=== PATIENT | male | born 1935 | race Two or more races ===

== ENCOUNTER 2017-12-12 09:33 | Inpatient (IN) | payer OTHER ==
[~2017-12-12] VITALS: Ht 165.1 cm; Wt 64.9 kg
[~2017-12-12 09:33] MED LIST: ADVAIR 2501 DISK W/1 IH; ASA81 MG; DOXAZOSIN MESYLA2 MG; IPRATROPIUM0.2 MG/ML; SIMVASTATIN20 MG; SYMBICORT 16010.2 GM; TUDORZA PRESS400 MCG; VASOTEC20 M1
[2017-12-20] MEDS ORDERED: MEDROLPACK PO (13:59)
[2017-12-20] MEDS ORDERED: BEVESPI AEROS10.7 GM IH (13:59)
== END 2017-12-20 14:06 | disposition home or self-care (01) | DRG 190 ==
LOC: ER 09:33 → MEDJ 15:22 → SEC-K 15:22 → MEDJ 17:49
PROC: 3E0F7GC Introduction of Other Therapeutic Substance into Respiratory Tract, Via Natural or Artificial Opening (ICD-10-PCS; principal; 2017-12-12)
DX: J44.1 Chronic obstructive pulmonary disease with (acute) exacerbation (principal); J96.21 Acute and chronic respiratory failure with hypoxia; E87.2 Acidosis; J84.112 Idiopathic pulmonary fibrosis; I27.29 Other secondary pulmonary hypertension; I73.9 Peripheral vascular disease, unspecified; I10 Essential (primary) hypertension; E11.9 Type 2 diabetes mellitus without complications; E78.5 Hyperlipidemia, unspecified; R13.19 Other dysphagia; Z99.81 Dependence on supplemental oxygen

== ENCOUNTER 2018-08-24 09:11 | Inpatient (IN) | payer OTHER ==
[~2018-08-24] VITALS: Ht 162.6 cm; Wt 64.4 kg
[~2018-08-24 09:11] MED LIST changes: +BEVESPI AEROS10.7 GM IH; +MEDROLPACK PO; -VASOTEC20 M1; +VASOTEC20 M1 PO
[2018-08-24] MEDS ORDERED: LIPITOR40 MG PO (09:52)
[2018-08-24] MEDS ORDERED: SINGULAIR10 MG PO (09:53)
[2018-08-24] MEDS ORDERED: PREDNISONE10 MG PO (09:53)
[2018-08-24] MEDS ORDERED: VITAMIN B-625 MG PO (09:54)
[2018-08-24] MEDS ORDERED: VITAMIN D-32000 UNIT PO (09:54)
[2018-08-24] MEDS ORDERED: ADULT ASPIRIN81 MG PO (09:54)
[2018-08-24] MEDS ORDERED: PRESERVISION A1 EAC1 PO (09:55)
[2018-08-24] MEDS ORDERED: BEVESPI AEROS10.7 GM (09:55)
[2018-08-24] MEDS ORDERED: LUCENTIS0.3 MG/0.1 (09:56)
[2018-08-24] MEDS ORDERED: PROAIR HFA8.5 GM (09:56)
--- NOTE | 2018-08-24 09:57 | NUR ---
SE RECIBE PTE ACOMPANADO DE FAMILIAR ALERTA Y ORIENTADO X3 QUIEN REFIERE QUE HACE MAS DE SHELL SEMANA COMENZO A PRESENTAR TOS. PTE LLEGA A LA LOVELY DE EMERGENCIA CON TANQUE DE OXIGENO VACIO. PTE REFIERE SENTIRSE SIN OXIGENO POR LO QUE SE UBICA EN CRITICO. PTE CON DX DE COPD.
[2018-09-07] MEDS ORDERED: INTEGRA F CAPS1 EACH PO (17:33)
[2018-09-07] MEDS ORDERED: VASOTEC20 M1 PO (17:33)
[2018-09-07] MEDS ORDERED: PREDNISONE20 MG PO (17:33)
[2018-09-07] MEDS ORDERED: FAMOTIDINE20 MG PO (17:33)
[2018-09-07] MEDS ORDERED: LIPITOR40 MG PO (17:33)
[2018-09-07] MEDS ORDERED: SINGULAIR10 MG PO (17:33)
== END 2018-09-07 17:40 | disposition home or self-care (01) | DRG 191 ==
LOC: ER 09:11 → SEC-K 11:41 → MEDI 11:41
PROVIDERS: ADMIT Internal Medicine Geriatric Medicine
PROC: 4A033R1 Measurement of Arterial Saturation, Peripheral, Percutaneous Approach (ICD-10-PCS; principal; 2018-08-24)
PROC: 3E0F7GC Introduction of Other Therapeutic Substance into Respiratory Tract, Via Natural or Artificial Opening (ICD-10-PCS; 2018-08-24)
PROC: 4A12X4Z Monitoring of Cardiac Electrical Activity, External Approach (ICD-10-PCS; 2018-08-24)
DX: J44.1 Chronic obstructive pulmonary disease with (acute) exacerbation (principal); E87.2 Acidosis; J45.51 Severe persistent asthma with (acute) exacerbation; I27.0 Primary pulmonary hypertension; J96.11 Chronic respiratory failure with hypoxia; J20.9 Acute bronchitis, unspecified; J44.0 Chronic obstructive pulmonary disease with (acute) lower respiratory infection; Z99.81 Dependence on supplemental oxygen; B96.5 Pseudomonas (aeruginosa) (mallei) (pseudomallei) as the cause of diseases classified elsewhere; E16.0 Drug-induced hypoglycemia without coma; T38.0X5A Adverse effect of glucocorticoids and synthetic analogues, initial encounter; E78.5 Hyperlipidemia, unspecified; Z87.891 Personal history of nicotine dependence

== ENCOUNTER 2020-02-07 10:27 | Emergency (ER) | payer OTHER ==
[~2020-02-07] VITALS: Ht 167.6 cm; Wt 66.7 kg
[~2020-02-07 10:27] MED LIST changes: +ADULT ASPIRIN81 MG PO; +BEVESPI AEROS10.7 GM; +FAMOTIDINE20 MG PO; +INTEGRA F CAPS1 EACH PO; +LIPITOR40 MG PO; +LUCENTIS0.3 MG/0.1; +PREDNISONE10 MG PO; +PREDNISONE20 MG PO; +PRESERVISION A1 EAC1 PO; +PROAIR HFA8.5 GM; +SINGULAIR10 MG PO; +VITAMIN B-625 MG PO; +VITAMIN D-32000 UNIT PO
== END 2020-02-07 17:22 | disposition home or self-care (01) ==
LOC: ER 10:27
DX: J44.9 Chronic obstructive pulmonary disease, unspecified (principal); R06.02 Shortness of breath; Z03.818 Encounter for observation for suspected exposure to other biological agents ruled out

== ENCOUNTER 2021-02-12 14:27 | Inpatient (IN) | payer OTHER ==
[~2021-02-12] VITALS: Ht 165.1 cm; Wt 79.4 kg
--- NOTE | 2021-02-12 14:48 | NUR ---
SE RECIBE PTE EN COMPANIA DE PARAMEDICO Y FAMILIAR EL CUAL REFIERE QUE PTE TIENE DIFICULTADA AL RESPIRAR, SE UBICA PTE EN EL AREA DE CRITICO EN EL CUBICULO #3 EN CAMA CON BARANDASLELEVADA Y TIMBRE ACCIBLE SE CONECTA A MONITOR CARDIACO Y OXIMETRIA SE NOTIFICA A TERAPIA RESPIRATORIA A LA [place]. [place] SE LE ENTREGA PTE A ALBERTO NOLASCO PARA SEGUIMIENTO.
--- NOTE | 2021-02-12 15:22 | NUR ---
PTE ALERTA,ESTABLE Y ORIENTADO.SE EDUCA SOBRE EL TRATAMIENTO QUE SE LE REALIZARA EN EL HOSPITAL Y HARI REIFERE ENTENDER.SE CONECTA A MONITOR CARDIACO,SE LE COLOCA MARCANO,VENTURY MASK Y SE CANALIZA EN BRAZO DERECHO CON UN ANGIO #20 LORI DE EDEMA Y HEMATOMA.FAMILIAR DEL PTE FIRMA PAPEL DE DIRECTRICES ANTICIPADAS(DNI Y DNR).
--- NOTE | 2021-02-12 15:30 | NUR ---
PACIENTE ALERTA Y ORIENTADO POR KELLY. SE OFRFECE NOHEMI PARA EVALUAR CONDICION. PACIENTE CONECTADO A MONITOR CARDIACO CON SATUROMETRO, H/L PATENES X 2 EN BRAZO DERECHO ANGIOS #20 Y #22,AREAS LIBRES DE EDEMA Y/O ERITEMA. MARCANO PATENTE A GRAVEDAD CON ORINA AMARILLO INTENSO.PACIENTE CON VENTURY MASK.LE REALIZAN SAUL X ORDENADO.BARANDAS ELEVADAS POR FINN SEGURIDAD./SE MONITOREA POR CAMBIOS SIGNIFICATIVOS.
--- NOTE | 2021-02-12 16:35 | NUR ---
PERSONAL DE TERAPIA RESPIRATORIO CAMBIA VENTURY MASK Y COLOCA CANULA NASAL A [address] PALMER. SE NOTIFICA A DR ORNELAS QUEIN ENTRA EN TURNO QUE PACIENTE ESTA DESATURANDO ENTRE 89% Y 78%.REFIERE EVALUARA PACIENTE.
--- NOTE | 2021-02-12 17:30 | NUR ---
PERSONAL DE TERAPIA RESPIRATORIA COLOCA PACIENTE EN BPAP. PACIENTE SATURANDO 98% AL MOMENTO.SE CONTINUA MONITOREANDO POR CAMBIOS SIGNIFICATIVOS.
[2021-02-13] MEDS ORDERED: FLONASE16 GM (08:32)
[2021-02-23] MEDS ORDERED: PREDNISONE 5MG PO (13:56)
[2021-02-23] MEDS ORDERED: VASOTEC20 M1 PO (13:56)
[2021-02-23] MEDS ORDERED: INTEGRA F CAPS1 EACH PO (13:56)
[2021-02-23] MEDS ORDERED: FAMOTIDINE20 MG PO (13:56)
[2021-02-23] MEDS ORDERED: Neurin-Sl Tablet Sl SL (13:56)
[2021-02-23] MEDS ORDERED: MUCINEX600 MG PO (13:56)
[2021-02-23] MEDS ORDERED: SINGULAIR10 MG PO (13:56)
[2021-02-23] MEDS ORDERED: ADULT ASPIRIN81 MG PO (13:56)
[2021-02-23] MEDS ORDERED: LIPITOR40 MG PO (13:56)
== END 2021-02-23 18:32 | disposition home or self-care (01) | DRG 190 ==
LOC: ER 14:27 → MEDI 20:25
PROVIDERS: ADMIT Internal Medicine Geriatric Medicine; ATTEND Internal Medicine Geriatric Medicine
PROC: 5A09557 Assistance with Respiratory Ventilation, Greater than 96 Consecutive Hours, Continuous Positive Airway Pressure (ICD-10-PCS; principal; 2021-02-12)
PROC: BW24ZZZ Computerized Tomography (CT Scan) of Chest and Abdomen (ICD-10-PCS; 2021-02-13)
PROC: 4A12X4Z Monitoring of Cardiac Electrical Activity, External Approach (ICD-10-PCS; 2021-02-13)
PROC: B24BZZZ Ultrasonography of Heart with Aorta (ICD-10-PCS; 2021-02-13)
PROC: 02HV33Z Insertion of Infusion Device into Superior Vena Cava, Percutaneous Approach (ICD-10-PCS; 2021-02-16)
DX: J43.8 Other emphysema (principal); J16.8 Pneumonia due to other specified infectious organisms; J96.91 Respiratory failure, unspecified with hypoxia; J45.51 Severe persistent asthma with (acute) exacerbation; Z99.89 Dependence on other enabling machines and devices; Z87.891 Personal history of nicotine dependence; I11.0 Hypertensive heart disease with heart failure; I50.9 Heart failure, unspecified; Z20.822 Contact with and (suspected) exposure to COVID-19; E09.9 Drug or chemical induced diabetes mellitus without complications; T38.0X5A Adverse effect of glucocorticoids and synthetic analogues, initial encounter; Z79.4 Long term (current) use of insulin; E78.49 Other hyperlipidemia

== ENCOUNTER 2021-04-25 07:06 | Inpatient (IN) | payer OTHER ==
[~2021-04-25] VITALS: Ht 165.1 cm; Wt 63.5 kg
[~2021-04-25 07:06] MED LIST changes: +FLONASE16 GM; +MUCINEX600 MG PO; +Neurin-Sl Tablet Sl SL; +PREDNISONE 5MG PO
[2021-04-25] MEDS ORDERED: ATORVASTATIN CA40 MG PO (07:23)
[2021-04-25] MEDS ORDERED: VASOTEC20 MG PO (07:24)
[2021-04-25] MEDS ORDERED: PROAIR HFA8.5 GM IH (07:24)
[2021-04-26] MEDS ORDERED: FLONASE16 GM (15:24)
[2021-04-26] MEDS ORDERED: MONTELUKAST SOD10 MG (15:24)
[2021-04-26] MEDS ORDERED: ABANEU-SL TABL1 EACH (15:25)
[2021-05-09] MEDS ORDERED: BUPROPION HCL150 M1 PO (11:34)
[2021-05-09] MEDS ORDERED: PRESERVISION A1 EAC1 PO (11:34)
[2021-05-09] MEDS ORDERED: ATORVASTATIN CA40 MG PO (11:34)
[2021-05-09] MEDS ORDERED: INTEGRA F CAPS1 EACH PO (11:34)
[2021-05-09] MEDS ORDERED: RAYOS5 MG PO (11:34)
[2021-05-09] MEDS ORDERED: TRADJENTA5 MG PO (11:34)
[2021-05-09] MEDS ORDERED: ABANEU-SL TABL1 EACH SL (11:34)
[2021-05-09] MEDS ORDERED: VITAMIN D-40010 MCG PO (11:34)
[2021-05-09] MEDS ORDERED: POLY119PG PO (11:34)
[2021-05-09] MEDS ORDERED: VITAMIN B-625 MG PO (11:34)
[2021-05-09] MEDS ORDERED: ADULT ASPIRIN81 MG PO (11:34)
[2021-05-09] MEDS ORDERED: MONTELUKAST SOD10 MG PO (11:34)
[2021-05-09] MEDS ORDERED: FLONASE16 GM IH (11:34)
[2021-05-09] MEDS ORDERED: TAMS0.4C PO (11:34)
[2021-05-09] MEDS ORDERED: FAMOTIDINE20 MG PO (11:34)
[2021-05-09] MEDS ORDERED: XOPENEX0.63 MG/3 IH (11:34)
[2021-05-09] MEDS ORDERED: LOSARTAN POTASS25 MG PO (11:34)
[2021-05-09] MEDS ORDERED: BEVESPI AEROS10.7 GM IH (11:38)
== END 2021-05-09 19:06 | disposition home or self-care (01) | DRG 190 ==
LOC: ER 07:06 → MEDI 15:08 → SEC-K 15:08 → MEDI 04-26 16:46
PROVIDERS: ADMIT Internal Medicine Geriatric Medicine; ATTEND Internal Medicine Geriatric Medicine
PROC: 02HV33Z Insertion of Infusion Device into Superior Vena Cava, Percutaneous Approach (ICD-10-PCS; principal; 2021-04-25)
PROC: 5A09557 Assistance with Respiratory Ventilation, Greater than 96 Consecutive Hours, Continuous Positive Airway Pressure (ICD-10-PCS; 2021-04-25)
PROC: 4A12X4Z Monitoring of Cardiac Electrical Activity, External Approach (ICD-10-PCS; 2021-04-27)
DX: J44.1 Chronic obstructive pulmonary disease with (acute) exacerbation (principal); J96.02 Acute respiratory failure with hypercapnia; J96.01 Acute respiratory failure with hypoxia; J18.8 Other pneumonia, unspecified organism; I27.20 Pulmonary hypertension, unspecified; J84.10 Pulmonary fibrosis, unspecified; D64.9 Anemia, unspecified; N28.1 Cyst of kidney, acquired; Z79.4 Long term (current) use of insulin; Z20.822 Contact with and (suspected) exposure to COVID-19; I11.0 Hypertensive heart disease with heart failure; I50.9 Heart failure, unspecified; E09.9 Drug or chemical induced diabetes mellitus without complications; T38.0X5A Adverse effect of glucocorticoids and synthetic analogues, initial encounter; I25.10 Atherosclerotic heart disease of native coronary artery without angina pectoris; Z87.891 Personal history of nicotine dependence; Z99.89 Dependence on other enabling machines and devices; Z74.01 Bed confinement status